=== PATIENT | female | born 1935 | race Caucasian/White ===

== ENCOUNTER 2016-10-07 16:09 | Outpatient (CLI) | payer MEDICARE, OTHER ==
--- NOTE | 2016-10-07 19:02 | RAD ---
RIGHT SHOULDER: 10/07/16 Three views obtained. HISTORY: Arthritis right shoulder. Shoulder pain. There are degenerative changes at the right shoulder. There is joint space narrowing. Spurring from the humeral head. Subchondral cystic changes. There is widening of the AC joint of uncertain signifi cance. IMPRESSION: Moderate degenerative changes at the right shoulder as described. POS: [facility]
== END 2016-10-07 16:10 | disposition home or self-care (01) ==
LOC: MADRAD 16:09
PROVIDERS: ATTEND Obstetrics & Gynecology
DX: M19.011 Primary osteoarthritis, right shoulder (principal)

== ENCOUNTER 2023-02-09 23:05 | Emergency (ER) | payer OTHER, MEDICARE ==
[2023-02-10] MEDS ORDERED: Bacitracin 1 PK ONE (00:08)
[2023-02-10] MEDS ORDERED: Lidocaine 1% w/Epinephrine 1:100K 20 ML VIAL ONE (00:08)
== END 2023-02-10 00:04 | disposition home or self-care (01) ==
LOC: MADERS 23:05
DX: S51.011A Laceration without foreign body of right elbow, initial encounter (principal); S09.90XA Unspecified injury of head, initial encounter; S00.03XA Contusion of scalp, initial encounter; I10 Essential (primary) hypertension; E03.9 Hypothyroidism, unspecified; E78.00 Pure hypercholesterolemia, unspecified; Z79.899 Other long term (current) drug therapy; W01.10XA Fall on same level from slipping, tripping and stumbling with subsequent striking against unspecified object, initial encounter
CPT/HCPCS: 12002; 70450

== ENCOUNTER 2025-03-04 04:34 | Emergency (ER) | payer MEDICARE, OTHER ==
[2025-03-04 05:09] LABS: #Basophils 0.1 thou/uL (0.0-0.2); #Eosinophils 1.2 thou/uL (0.0-0.7); #Lymphocytes 1.5 thou/uL (1.20-3.40); #Monocytes 0.9 thou/uL (0.11-0.59); #Neutrophils 5.8 thou/uL (1.40-6.50); %Basophils 1.4 % (0.0-1.0); %Eosinophils 12.7 % (0.0-10.0); %Lymphocytes 15.7 % (21.0-51.0); %Monocytes 9.2 % (0.0-10.0); %Neutrophils 61.0 % (42.0-75.0); Hematocrit 33.7 % (36.0-47.0); Hemoglobin 11.3 g/dL (12.0-16.0); Mean Corpuscular Hemoglobin 31.5 pg (27.0-31.0); Mean Corpuscular Volume 93.9 fl (78.0-98.0); Platelet Count 236 10x3/uL (130-400); Red Blood Cell (RBC) Count 3.59 mill/uL (4.20-5.40); White Blood Cell (WBC) Count 9.5 10x3/uL (4.8-10.8)
[2025-03-04 05:26] LABS: ALT (SGPT) 13 U/L (Less than 34); AST (SGOT) 21 U/L (11-34); Albumin 3.0 g/dL (3.1-4.5); Alkaline Phosphatase 78 U/L (40-110); Anion Gap 18 mmol/L (10-20); BUN (Urea Nitrogen) 51 mg/dL (9.8-20.1); Bilirubin, Total 0.4 mg/dL (0.3-1.2); Calc. Creatinine Clearance 0 mL/min (70-130); Calcium 10.0 mg/dL (7.8-10.44); Carbon Dioxide 15 mmol/L (23-31); Chloride 105 mmol/L (98-107); Globulin 3.7 g/dL (2.4-3.5); Glucose 125 mg/dL (83-110); Potassium 5.1 mmol/L (3.5-5.1); Sodium 133 mmol/L (136-145)
[2025-03-04 06:06] LABS: Glucose, Urine (Dipstick) Negative (Negative); Leukocyte Large (Negative); Protein, Urine (Dipstick) 100 mg/dL (Neg-Trace); Specific Gravity, Urine 1.020 (1.005-1.030)
[2025-03-04 06:09] LABS: CAUTI Indications for Culture Dysuria,urgency,freq; WBC/HPF Greater than 50 HPF (0-3)
[2025-03-04 06:10] LABS: Bacteria/HPF 1+ HPF (None Seen); Urine Culture Reflex Yes Yes
[2025-03-04] MEDS ORDERED: cefTRIAXone (ROCEPHIN) 2 GM VIAL ONE (06:16)
[2025-03-04 08:31] LABS: Anion Gap 18 mmol/L (10-20); BUN (Urea Nitrogen) 48 mg/dL (9.8-20.1); Calc. Creatinine Clearance 0 mL/min (70-130); Calcium 9.5 mg/dL (7.8-10.44); Carbon Dioxide 15 mmol/L (23-31); Chloride 108 mmol/L (98-107); Glucose 101 mg/dL (83-110); Potassium 4.9 mmol/L (3.5-5.1); Sodium 136 mmol/L (136-145)
== END 2025-03-04 09:10 | disposition home or self-care (01) ==
LOC: MADERS 04:34
DX: N39.0 Urinary tract infection, site not specified (principal); I12.9 Hypertensive chronic kidney disease with stage 1 through stage 4 chronic kidney disease, or unspecified chronic kidney disease; N18.9 Chronic kidney disease, unspecified; N17.9 Acute kidney failure, unspecified; E87.1 Hypo-osmolality and hyponatremia; L89.892 Pressure ulcer of other site, stage 2; E78.00 Pure hypercholesterolemia, unspecified; F03.90 Unspecified dementia, unspecified severity, without behavioral disturbance, psychotic disturbance, mood disturbance, and anxiety; Z95.0 Presence of cardiac pacemaker; Z79.899 Other long term (current) drug therapy
CPT/HCPCS: 36415; 80053; 81001; 82550; 85025; 87077; 87086; 87186; 93005; 96361; 96374; J0696; J7030